=== PATIENT | female | born 1950 | race Caucasian/White ===

== ENCOUNTER 2021-12-19 13:22 | Inpatient (IN) | payer OTHER ==
[~2021-12-19] VITALS: Ht 152.4 cm; Wt 99.2 kg
[2021-12-19 14:03] LABS: Basophils # (auto) 0 10 ^3/uL (0-0.2); Basophils % (auto) 0.5 % (0.0-2.0); Eosinophils # (auto) 0.1 10 ^3/uL (0-0.8); Eosinophils % (auto) 0.9 % (0.0-7.0); Hematocrit 41.9 % (36.0-46.0); Hemoglobin 13.5 g/dL (12.2-16.2); Lymphocytes # (auto) 1.5 10 ^3/uL (0.4-5.4); Lymphocytes % (auto) 16.5 % (10.0-50.0); Mean Corpuscular Hemoglobin 27.2 pg (28.0-32.0); Mean Corpuscular Hgb Conc. 32.2 g/dL (32.0-36.0); Mean Corpuscular Volume 84.5 fL (80.0-100.0); Monocytes # (auto) 0.8 10 ^3/uL (0-1.3); Neutrophils # (auto) 6.5 10 ^3/uL (1.6-8.6); Neutrophils % (auto) 73.1 % (37.0-80.0); Red Blood Cells 4.96 10^6/uL (4.0-5.20); Red Cell Distribution Width 14.3 % (11.8-14.3); White Blood Cell 8.9 10^3/uL (4.4-10.8)
[2021-12-19] MEDS ORDERED: SODIUM CHLORIDE 0.9% 1,000 ML IV ONE ×2 (14:15→14:30)
[2021-12-19 14:22] LABS: Albumin 3.9 g/dL (3.4-5.0); Calcium 9.3 mg/dL (8.5-10.1)
[2021-12-19 14:25] LABS: BUN/Creatinine Ratio 18.7; Bilirubin, Total 1.6 mg/dL (0.2-1.0); Total Protein 7.1 g/dL (6.4-8.2)
[2021-12-19] MEDS ORDERED: AMIODARONE HCL 150 MG in D5W 5% 100 ML IV ONE (14:30)
[2021-12-19] MEDS ORDERED: AMIODARONE HCL (50 MG/ ML) 3 ML VIAL IV ONE (14:35)
[2021-12-19 14:45] LABS: Potassium 2.3 mmol/L (3.5-5.1)
[2021-12-19] MEDS ORDERED: AMIODARONE 450mg/250ml AE 250 ML IV SCH ×2 (14:45→16:00)
[2021-12-19] MEDS ORDERED: NITROGLYCERIN 0.4 MG SL TAB SL PRN (16:00)
[2021-12-19] MEDS ORDERED: LORazepam 0.5 MG TAB PO PRN (16:00)
[2021-12-19] MEDS ORDERED: POTASSIUM CHLORIDE 20 MEQ, LIDOCAINE 1% (LOCAL ANESTH.) 2 ML in SODIUM CHL 0.9% 100 ML IV ONE (16:00)
[2021-12-19] MEDS ORDERED: ONDANSETRON HCL 4 MG/2 ML VIAL IV PRN (16:00)
[2021-12-19] MEDS ORDERED: MORPHINE SULFATE INJ 2 MG/ml SYRG IV PRN (16:00)
[2021-12-19] MEDS ORDERED: ENOXAPARIN SOD 100 MG/1 ML SYRINGE SC ONE (16:00)
[2021-12-19] MEDS ORDERED: POTASSIUM CHL 20 Meq TABLET PO ONE (16:00)
[2021-12-19] MEDS ORDERED: ACETAMINOPHEN 500 MG TAB PO PRN (16:00)
[2021-12-19] MEDS ORDERED: DIGOXIN 0.25 MG TAB PO ONE (16:15)
[2021-12-19] MEDS: CARVEDILOL 3.125 MG TAB PO SCH (16:59)
[2021-12-19 17:08] LABS: Urine Bacteria NONE SEEN /hpf (None Seen); Urine Blood Negative /uL (Negative); Urine Hyaline Cast FEW /lpf (0 - 2); Urine Specific Gravity 1.012 (1.001-1.035); Urine WBC 1 /hpf (0 - 5)
[2021-12-20] MEDS: AMIODARONE 450mg/250ml AE 250 ML IV SCH ×2 (02:01→13:54)
[2021-12-20 06:45] LABS: BUN/Creatinine Ratio 23.7; Calcium 7.8 mg/dL (8.5-10.1)
[2021-12-20 06:52] LABS: Potassium 2.7 mmol/L (3.5-5.1)
[2021-12-20] MEDS ORDERED: POTASSIUM CHL 20 Meq TABLET PO ONE ×2 (07:30→13:00)
[2021-12-20] MEDS: CARVEDILOL 3.125 MG TAB PO SCH (10:41)
[2021-12-20] MEDS: ENOXAPARIN SOD 100 MG/1 ML SYRINGE SC SCH (10:41)
[2021-12-20] MEDS ORDERED: MECL12.514 PO (12:23)
[2021-12-20] MEDS ORDERED: ALP15OS EACHEYE (12:23)
[2021-12-20] MEDS ORDERED: MONT-8 PO (12:23)
[2021-12-20] MEDS ORDERED: SERT-377 PO (12:23)
[2021-12-20] MEDS ORDERED: SIMV-13 PO (12:23)
[2021-12-20] MEDS ORDERED: ALBU108A14 IN (12:23)
[2021-12-20] MEDS ORDERED: FLUT500M2 INH (12:23)
[2021-12-20] MEDS ORDERED: HYDR12.56 PO (12:23)
[2021-12-20] MEDS ORDERED: FURO40TA4 PO (12:23)
[2021-12-20] MEDS ORDERED: LATA0.0019 EACHEYE (12:23)
[2021-12-20] MEDS ORDERED: POTA10TA51 PO (12:23)
[2021-12-20] MEDS ORDERED: PANT40TA2 PO (12:23)
[2021-12-20 12:42] VITALS: BP 189/96
[2021-12-20] MEDS ORDERED: POTASSIUM CHLORIDE 40 MEQ, LIDOCAINE 1% (LOCAL ANESTH.) 4 ML in SODIUM CHL 0.9% 250 ML IV ONE (13:00)
[2021-12-20] MEDS ORDERED: DOCUSATE SOD 100 MG CAP PO ONE (13:00)
[2021-12-20] MEDS ORDERED: LACTULOSE 20Gm/30ML SOLN PO ONE (13:00)
[2021-12-20] MEDS ORDERED: PANTOPRAZOLE 40 MG TAB PO ONE (13:00)
[2021-12-20] MEDS ORDERED: CARVEDILOL 3.125 MG TAB PO ONE (13:00)
[2021-12-20] MEDS ORDERED: FUROSEMIDE 40 MG TAB PO ONE (15:45)
[2021-12-20 17:00] VITALS: BP 101/72
[2021-12-20] MEDS: LATANOPROST 0.005 % OPTH(EYE) SOL 2.5ML EACHEYE SCH (21:48)
[2021-12-20] MEDS: BRIMONIDINE 0.2% OPTH Soln 5ml EACHEYE SCH (21:48)
[2021-12-20 22:00] VITALS: BP 113/71
[2021-12-20] MEDS ORDERED: CARVEDILOL 3.125 MG TAB PO SCH (22:00)
[2021-12-20] MEDS: ATORVASTATIN 20 MG TAB PO SCH (22:16)
[2021-12-20] MEDS: MONTELUKAST SODIUM 10 MG TAB PO SCH (22:17)
[2021-12-21] MEDS: AMIODARONE 450mg/250ml AE 250 ML IV SCH ×2 (03:48→18:46)
[2021-12-21 05:00] VITALS: BP 114/63
[2021-12-21 06:50] LABS: Calcium 8.3 mg/dL (8.5-10.1); Magnesium 1.7 mg/dL (1.6-2.6)
[2021-12-21 06:54] LABS: Potassium 2.7 mmol/L (3.5-5.1)
[2021-12-21 09:00] VITALS: BP 119/70
[2021-12-21] MEDS: BRIMONIDINE 0.2% OPTH Soln 5ml EACHEYE SCH ×2 (10:00→22:22)
[2021-12-21] MEDS: CARVEDILOL 12.5 MG TAB PO SCH ×2 (10:08→22:24)
[2021-12-21] MEDS: FUROSEMIDE 40 MG TAB PO SCH (10:09)
[2021-12-21] MEDS: ENOXAPARIN SOD 100 MG/1 ML SYRINGE SC SCH (10:09)
[2021-12-21] MEDS: PANTOPRAZOLE 40 MG TAB PO SCH (10:09)
[2021-12-21] MEDS: SERTRALINE HCL 50 MG TAB PO SCH (10:09)
[2021-12-21 13:00] VITALS: BP 131/75
[2021-12-21] MEDS ORDERED: POTASSIUM CHL 20 Meq TABLET PO ONE (14:30)
[2021-12-21] MEDS ORDERED: POTASSIUM CHLORIDE 40 MEQ, LIDOCAINE 1% (LOCAL ANESTH.) 4 ML in SODIUM CHL 0.9% 250 ML IV ONE (14:30)
[2021-12-21] MEDS: MAGNESIUM SULFATE 1GM/100ML 100 ML IV SCH ×4 (15:00→23:33)
[2021-12-21 17:05] VITALS: BP 98/67
[2021-12-21 22:00] VITALS: BP 122/99
[2021-12-21] MEDS: ATORVASTATIN 20 MG TAB PO SCH (22:00)
[2021-12-21] MEDS: LATANOPROST 0.005 % OPTH(EYE) SOL 2.5ML EACHEYE SCH (22:22)
[2021-12-21] MEDS: AMIODARONE HCL 200 MG TAB PO SCH (22:23)
[2021-12-21] MEDS: MONTELUKAST SODIUM 10 MG TAB PO SCH (22:25)
[2021-12-22 05:05] VITALS: BP 142/65
[2021-12-22 05:54] LABS: Calcium 8.1 mg/dL (8.5-10.1); Magnesium 2.1 mg/dL (1.6-2.6)
[2021-12-22 05:57] LABS: BUN/Creatinine Ratio 20.8
[2021-12-22 06:16] LABS: Potassium 2.8 mmol/L (3.5-5.1)
[2021-12-22 09:00] VITALS: BP 115/67
[2021-12-22] MEDS: HYDROcodone-ACET 5/325MG TAB PO PRN ×2 (09:03→14:33)
[2021-12-22] MEDS ORDERED: POTASSIUM CHL 20 Meq TABLET PO SCH (10:00)
[2021-12-22] MEDS: BRIMONIDINE 0.2% OPTH Soln 5ml EACHEYE SCH ×2 (10:05→22:16)
[2021-12-22] MEDS: AMIODARONE HCL 200 MG TAB PO SCH ×2 (10:06→22:16)
[2021-12-22] MEDS: PANTOPRAZOLE 40 MG TAB PO SCH (10:06)
[2021-12-22] MEDS: SERTRALINE HCL 50 MG TAB PO SCH (10:06)
[2021-12-22] MEDS: CARVEDILOL 12.5 MG TAB PO SCH ×2 (10:06→16:53)
[2021-12-22] MEDS: ENOXAPARIN SOD 100 MG/1 ML SYRINGE SC SCH (10:06)
[2021-12-22] MEDS: FUROSEMIDE 40 MG TAB PO SCH (10:07)
[2021-12-22 13:00] VITALS: BP 113/70
[2021-12-22] MEDS ORDERED: POTASSIUM EFFERVESENT TAB 25 MEQ GT ONE (13:30)
[2021-12-22] MEDS ORDERED: SPIRONOLACTONE 25 MG TAB PO ONE (13:30)
[2021-12-22] MEDS ORDERED: CARVEDILOL 12.5 MG TAB PO SCH (16:15)
[2021-12-22 16:34] VITALS: BP 102/56
[2021-12-22 22:00] VITALS: BP 100/46
[2021-12-22] MEDS: APIXABAN 5 MG TAB PO SCH (22:16)
[2021-12-22] MEDS: LATANOPROST 0.005 % OPTH(EYE) SOL 2.5ML EACHEYE SCH (22:16)
[2021-12-22] MEDS: ATORVASTATIN 20 MG TAB PO SCH (22:17)
[2021-12-22] MEDS: MONTELUKAST SODIUM 10 MG TAB PO SCH (22:17)
[2021-12-23] MEDS: CARVEDILOL 12.5 MG TAB PO SCH ×2 (04:15→16:30)
[2021-12-23 04:23] LABS: Calcium 8.6 mg/dL (8.5-10.1)
[2021-12-23 04:25] LABS: BUN/Creatinine Ratio 21.8
[2021-12-23 05:00] VITALS: BP 102/56
[2021-12-23 09:00] VITALS: BP 117/64
[2021-12-23] MEDS ORDERED: SPIRONOLACTONE 25 MG TAB PO SCH (10:00)
[2021-12-23] MEDS: BRIMONIDINE 0.2% OPTH Soln 5ml EACHEYE SCH (10:00)
[2021-12-23] MEDS ORDERED: LISINOPRIL 5 MG TAB PO SCH (10:00)
[2021-12-23] MEDS ORDERED: POTASSIUM EFFERVESENT TAB 25 MEQ PO SCH (10:00)
[2021-12-23] MEDS: PANTOPRAZOLE 40 MG TAB PO SCH (10:54)
[2021-12-23] MEDS: APIXABAN 5 MG TAB PO SCH (10:55)
[2021-12-23] MEDS: SERTRALINE HCL 50 MG TAB PO SCH (10:56)
[2021-12-23] MEDS: AMIODARONE HCL 200 MG TAB PO SCH (10:57)
[2021-12-23] MEDS: FUROSEMIDE 40 MG TAB PO SCH (10:58)
[2021-12-23 13:00] VITALS: BP 130/68
[2021-12-23] MEDS: POTASSIUM CHL 20 Meq TABLET PO ONE ×2 (14:00→14:17)
[2021-12-23] MEDS ORDERED: POTASSIUM EFFERVESENT TAB 25 MEQ PO ONE ×2 (15:00)
[2021-12-23] MEDS ORDERED: AMIO400T7 PO (15:09)
[2021-12-23] MEDS ORDERED: CAR125T PO (15:09)
[2021-12-23] MEDS ORDERED: SPIR25TA PO (15:09)
[2021-12-23] MEDS ORDERED: LISI-275 PO (15:09)
[2021-12-23] MEDS ORDERED: APIX5TAB PO (15:09)
[2021-12-23 17:00] VITALS: BP 122/71
[2021-12-23 17:13] VITALS: BP 122/71
== END 2021-12-23 18:00 | disposition home or self-care (01) | DRG 291 ==
LOC: ER 13:22 → TELE 15:56 → TELE-WESTW 12-20 09:47
PROVIDERS: ADMIT Internal Medicine; ATTEND Internal Medicine
DX: I11.0 Hypertensive heart disease with heart failure (principal); I50.41 Acute combined systolic (congestive) and diastolic (congestive) heart failure; N17.0 Acute kidney failure with tubular necrosis; I48.20 Chronic atrial fibrillation, unspecified; D68.69 Other thrombophilia; Z68.41 Body mass index [BMI] 40.0-44.9, adult; I42.8 Other cardiomyopathies; E87.6 Hypokalemia; E66.01 Morbid (severe) obesity due to excess calories; Z20.822 Contact with and (suspected) exposure to COVID-19; E78.5 Hyperlipidemia, unspecified; F41.9 Anxiety disorder, unspecified; F32.A Depression, unspecified; J44.9 Chronic obstructive pulmonary disease, unspecified; K59.00 Constipation, unspecified; H40.9 Unspecified glaucoma; Z90.49 Acquired absence of other specified parts of digestive tract
CPT/HCPCS: 36415; 71045; 80048; 80053; 81001; 83735; 83880; 84443; 84484; 85025; 93005; 93306; 96365; 99291; G0378; J2001; J7060

== ENCOUNTER → 2021-12-27 | Outpatient (CLI) | payer OTHER ==
[~2021-12-27] MED LIST: ALBU108A14 IN; ALP15OS EACHEYE; AMIO400T7 PO; APIX5TAB PO; CAR125T PO; FLUT500M2 INH; FURO40TA4 PO; LATA0.0019 EACHEYE; LISI-275 PO; MECL12.514 PO; MONT-8 PO; PANT40TA2 PO; SERT-377 PO; SIMV-13 PO; SPIR25TA PO
[2021-12-27 14:35] LABS: Albumin 3.1 g/dL (3.4-5.0); Calcium 9.2 mg/dL (8.5-10.1); Potassium 3.3 mmol/L (3.5-5.1)
[2021-12-27 14:39] LABS: BUN/Creatinine Ratio 20.2; Bilirubin, Total 0.9 mg/dL (0.2-1.0); Total Protein 6.2 g/dL (6.4-8.2)
== END | disposition home or self-care (01) ==
LOC: LAB 13:52
PROVIDERS: ATTEND Internal Medicine
DX: I10 Essential (primary) hypertension (principal); I12.9 Hypertensive chronic kidney disease with stage 1 through stage 4 chronic kidney disease, or unspecified chronic kidney disease; N18.30 Chronic kidney disease, stage 3 unspecified
CPT/HCPCS: 36415; 80053

== ENCOUNTER 2023-10-23 13:22 | Emergency (ER) | payer OTHER ==
[~2023-10-23] VITALS: Ht 152.4 cm; Wt 72.3 kg
[~2023-10-23 13:22] MED LIST changes: -CAR125T PO; +CARV-216 PO; -LATA0.0019 EACHEYE; +LATA0.008 EACHEYE; -MECL12.514 PO; +MECL12.586 PO; -SIMV-13 PO; +SIMV40TA18 PO
[2023-10-23 14:46] LABS: Urine Bacteria None Seen /hpf (None Seen)
[2023-10-23 14:52] LABS: Urine Blood Negative /uL (Negative); Urine Clarity Clear (Clear); Urine Color Colorless (Yellow); Urine Protein, UAD Negative (Negative); Urine Specific Gravity 1.008 (1.001-1.035); Urine Urobilinogen Normal (Negative); Urine WBC 34 /hpf (0 - 5)
[2023-10-23 15:00] VITALS: PULSE 52; RESP 17; O2SAT 97
[2023-10-23 15:05] VITALS: TEMP 98.7
[2023-10-23 15:09] LABS: Basophils # (auto) 0 10 ^3/uL (0-0.2)
[2023-10-23 15:12] LABS: Chloride 110 mmol/L (98-107); Potassium 4.1 mmol/L (3.5-5.1); Sodium 139 mmol/L (136-145)
[2023-10-23 15:13] LABS: Anion Gap 5 (5-15); Carbon Dioxide 24 mmol/L (20-30)
[2023-10-23 15:14] LABS: Basophils % (auto) 0.6 % (0.0-2.0); Calcium 9.2 mg/dL (8.5-10.1); Eosinophils # (auto) 0.6 10 ^3/uL (0-0.8); Eosinophils % (auto) 8.1 % (0.0-7.0); Hematocrit 39.5 % (36.0-46.0); Hemoglobin 11.6 g/dL (12.2-16.2); Lymphocytes # (auto) 1.4 10 ^3/uL (0.4-5.4); Lymphocytes % (auto) 18.1 % (10.0-50.0); Mean Corpuscular Hemoglobin 27.3 pg (28.0-32.0); Mean Corpuscular Hgb Conc. 29.4 g/dL (32.0-36.0); Mean Corpuscular Volume 92.9 fL (80.0-100.0); Monocytes # (auto) 0.5 10 ^3/uL (0-1.3); Neutrophils # (auto) 5.4 10 ^3/uL (1.6-8.6); Neutrophils % (auto) 67.2 % (37.0-80.0); Red Blood Cells 4.26 10^6/uL (4.0-5.20); Red Cell Distribution Width 18.3 % (11.8-14.3)
[2023-10-23 15:19] LABS: BUN/Creatinine Ratio 21.5 (10.0-20.0); Blood Urea Nitrogen 44 mg/dL (9-23); Glucose 84 mg/dL (74-106)
[2023-10-23] MEDS: cefTRIAXone 1GM/50ML D5W 50 ML IV ONE (16:30)
[2023-10-23] MEDS ORDERED: NITR-87 PO (17:51)
[2023-10-23 18:07] VITALS: BP 105/45; PULSE 52; RESP 16; O2SAT 95
== END 2023-10-23 18:23 | disposition home or self-care (01) ==
LOC: ER 13:22
DX: N39.0 Urinary tract infection, site not specified (principal); F41.9 Anxiety disorder, unspecified; J45.909 Unspecified asthma, uncomplicated; F32.9 Major depressive disorder, single episode, unspecified; E78.5 Hyperlipidemia, unspecified; I10 Essential (primary) hypertension; I48.91 Unspecified atrial fibrillation; Z79.899 Other long term (current) drug therapy
CPT/HCPCS: 36415; 70450; 80048; 81001; 82962; 84484; 85025; 87086; 96365; 99285; J0696

== ENCOUNTER 2023-10-29 10:41 | Inpatient (IN) | payer OTHER ==
[~2023-10-29] VITALS: Ht 157.5 cm; Wt 165.5 kg
[~2023-10-29 10:41] MED LIST changes: +ALPR0.254 PO; +NITR-87 PO; +TRAM50TA2 PO
[2023-10-29 11:40] LABS: Urine Bacteria FEW /hpf (None Seen); Urine Blood 1+ /uL (Negative); Urine Clarity Turbid (Clear); Urine Color Yellow (Yellow); Urine Hyaline Cast FEW /lpf (0 - 2); Urine Mucus FEW (None Seen); Urine Protein, UAD 1+ (Negative); Urine Specific Gravity 1.018 (1.001-1.035); Urine Urobilinogen Normal (Negative); Urine WBC 377 /hpf (0 - 5)
[2023-10-29 11:59] LABS: Alanine Aminotransferase 17 U/L (7-40); Albumin 3.9 g/dL (3.2-4.8); Alkaline Phosphatase 85 U/L (46-116); Anion Gap 7 (5-15); Aspartate Aminotransferase 20 U/L (13-40); BUN/Creatinine Ratio 17.8 (10.0-20.0); Bilirubin, Total 0.5 mg/dL (0.2-1.0); Blood Urea Nitrogen 31 mg/dL (9-23); Calcium 9.2 mg/dL (8.7-10.4); Carbon Dioxide 22 mmol/L (20-30); Chloride 110 mmol/L (98-107); Glucose 96 mg/dL (74-106); Lipase 38 U/L (12-53); Potassium 4.2 mmol/L (3.5-5.1); Sodium 139 mmol/L (136-145)
[2023-10-29 12:22] LABS: Basophils # (auto) 0 10 ^3/uL (0-0.2); Basophils % (auto) 0.4 % (0.0-2.0); Eosinophils # (auto) 0.4 10 ^3/uL (0-0.8); Eosinophils % (auto) 3.3 % (0.0-7.0); Hematocrit 33.3 % (36.0-46.0); Hemoglobin 10.6 g/dL (12.2-16.2); Lymphocytes # (auto) 0.9 10 ^3/uL (0.4-5.4); Lymphocytes % (auto) 6.9 % (10.0-50.0); Mean Corpuscular Hgb Conc. 31.8 g/dL (32.0-36.0); Mean Corpuscular Volume 84.9 fL (80.0-100.0); Monocytes # (auto) 0.6 10 ^3/uL (0-1.3); Monocytes % (auto) 4.7 % (0.0-12.0); Neutrophils # (auto) 10.5 10 ^3/uL (1.6-8.6); Neutrophils % (auto) 84.7 % (37.0-80.0); Red Blood Cells 3.92 10^6/uL (4.0-5.20); Red Cell Distribution Width 16.3 % (11.8-14.3); White Blood Cell 12.4 10^3/uL (4.4-10.8)
[2023-10-29] MEDS: cefTRIAXone 1GM/50ML D5W 50 ML IV ONE (15:00)
[2023-10-29] MEDS: HYDROcodone-ACET 5/325MG TAB PO ONE (15:03)
[2023-10-29] MEDS: SODIUM CHLORIDE 0.9% 1,000 ML IV ONE (18:30)
[2023-10-29] MEDS ORDERED: CLOP75TA70 PO (19:13)
[2023-10-29] MEDS ORDERED: ACETAMINOPHEN 325 MG TAB PO PRN (19:15)
[2023-10-29] MEDS ORDERED: DOCUSATE SOD 100 MG CAP PO PRN (19:15)
[2023-10-29] MEDS ORDERED: NITROGLYCERIN 0.4 MG SL TAB SL PRN (19:15)
[2023-10-29] MEDS ORDERED: MORPHINE SULFATE INJ 2 MG/ml SYRG IV PRN (19:15)
[2023-10-29] MEDS ORDERED: ONDANSETRON HCL 4 MG/2 ML VIAL IV PRN (19:15)
[2023-10-29] MEDS: SODIUM CHLORIDE 0.9% 1,000 ML IV SCH (20:30)
[2023-10-30] VITALS (10 sets, daily range): BP systolic 99–132; BP diastolic 31–47; PULSE 46–63; RESP 14–18; TEMP 97.7–98.2; O2SAT 95–99
[2023-10-30] MEDS: AMIODARONE HCL 200 MG TAB PO SCH (00:50)
[2023-10-30] MEDS: HYDROcodone-ACET 5/325MG TAB PO PRN (00:51)
[2023-10-30 06:39] LABS: Alanine Aminotransferase 18 U/L (7-40); Albumin 4.2 g/dL (3.2-4.8); Alkaline Phosphatase 93 U/L (46-116); Anion Gap 9 (5-15); Aspartate Aminotransferase 24 U/L (13-40); BUN/Creatinine Ratio 13.1 (10.0-20.0); Blood Urea Nitrogen 19 mg/dL (9-23); Calcium 9.4 mg/dL (8.5-10.1); Carbon Dioxide 19 mmol/L (20-30); Chloride 110 mmol/L (98-107); Glucose 78 mg/dL (74-106); Potassium 3.4 mmol/L (3.5-5.1); Sodium 138 mmol/L (136-145)
[2023-10-30 06:40] LABS: Bilirubin, Total 0.5 mg/dL (0.2-1.0); Total Protein 6.7 g/dL (5.7-8.2)
[2023-10-30 06:54] LABS: Basophils # (auto) 0.1 10 ^3/uL (0-0.2); Basophils % (auto) 0.7 % (0.0-2.0); Eosinophils # (auto) 0.8 10 ^3/uL (0-0.8); Eosinophils % (auto) 5.6 % (0.0-7.0); Hematocrit 36.5 % (36.0-46.0); Hemoglobin 11.5 g/dL (12.2-16.2); Lymphocytes # (auto) 0.6 10 ^3/uL (0.4-5.4); Lymphocytes % (auto) 4.8 % (10.0-50.0); Mean Corpuscular Hemoglobin 27.4 pg (28.0-32.0); Mean Corpuscular Hgb Conc. 31.5 g/dL (32.0-36.0); Mean Corpuscular Volume 87.2 fL (80.0-100.0); Monocytes # (auto) 0.5 10 ^3/uL (0-1.3); Monocytes % (auto) 3.4 % (0.0-12.0); Neutrophils # (auto) 11.5 10 ^3/uL (1.6-8.6); Neutrophils % (auto) 85.5 % (37.0-80.0); Nucleated Red Blood Cells % 0.1 %; Red Blood Cells 4.19 10^6/uL (4.0-5.20); White Blood Cell 13.4 10^3/uL (4.4-10.8)
[2023-10-30] MEDS: SODIUM CHLORIDE 0.9% 1,000 ML IV SCH (08:00)
[2023-10-30 08:47] LABS: Creatinine, Urine 85.74 mg/dL (30.0-125.0)
[2023-10-30] MEDS ORDERED: cefTRIAXone 1GM/50ML D5W 50 ML IV SCH (09:00)
[2023-10-30] MEDS: CEFEPIME 1GM/ 50ML 50 ML IV SCH (09:12)
[2023-10-30] MEDS: APIXABAN 5 MG TAB PO SCH (09:12)
[2023-10-30] MEDS: POTASSIUM CHL 20 Meq TABLET PO ONE (09:13)
[2023-10-30] MEDS: CLOPIDOGREL BISULFATE 75 MG TAB PO SCH (09:13)
[2023-10-30] MEDS: traMADol HCL 50 MG TAB PO PRN (12:41)
[2023-10-30] MEDS: ATORVASTATIN 20 MG TAB PO SCH (21:23)
[2023-10-30] MEDS: LATANOPROST 0.005 % OPTH(EYE) SOL 2.5ML EACHEYE SCH (21:23)
[2023-10-30] MEDS ORDERED: ENOXAPARIN SOD 30 MG/0.3 ML SYRINGE SC SCH (22:00)
[2023-10-31 01:00] VITALS: BP 110/54; PULSE 43; RESP 18; TEMP 97.9; O2SAT 95
[2023-10-31 05:00] VITALS: BP 113/50; PULSE 41; RESP 18; TEMP 98.1; O2SAT 97
[2023-10-31 06:10] LABS: Basophils # (auto) 0 10 ^3/uL (0-0.2); Basophils % (auto) 0.4 % (0.0-2.0); Eosinophils # (auto) 0.5 10 ^3/uL (0-0.8); Eosinophils % (auto) 7.2 % (0.0-7.0); Hematocrit 34.7 % (36.0-46.0); Mean Corpuscular Hemoglobin 27.4 pg (28.0-32.0); Mean Corpuscular Hgb Conc. 31.6 g/dL (32.0-36.0); Mean Corpuscular Volume 86.6 fL (80.0-100.0); Monocytes # (auto) 0.7 10 ^3/uL (0-1.3); Monocytes % (auto) 9.3 % (0.0-12.0); Neutrophils # (auto) 5.1 10 ^3/uL (1.6-8.6); Neutrophils % (auto) 69.1 % (37.0-80.0); Nucleated Red Blood Cells % 0.2 %; Red Blood Cells 4.01 10^6/uL (4.0-5.20); Red Cell Distribution Width 16.9 % (11.8-14.3); White Blood Cell 7.4 10^3/uL (4.4-10.8)
[2023-10-31 06:26] LABS: Calcium 9.6 mg/dL (8.7-10.4); Chloride 112 mmol/L (98-107); Potassium 3.6 mmol/L (3.5-5.1); Sodium 138 mmol/L (136-145)
[2023-10-31 06:27] LABS: Anion Gap 7 (5-15); Carbon Dioxide 19 mmol/L (20-30)
[2023-10-31 06:32] LABS: BUN/Creatinine Ratio 15.3 (10.0-20.0); Blood Urea Nitrogen 20 mg/dL (9-23); Glucose 75 mg/dL (74-106)
[2023-10-31 06:33] LABS: Magnesium 1.8 mg/dL (1.6-2.6)
[2023-10-31 08:00] VITALS: PULSE 53; RESP 20
[2023-10-31 09:00] VITALS: BP 138/67; PULSE 51; RESP 18; TEMP 97.8; O2SAT 96
[2023-10-31] MEDS ORDERED: AMIO200T33 PO (09:21)
[2023-10-31] MEDS ORDERED: TRAZ-227 PO (09:21)
[2023-10-31] MEDS ORDERED: POTA-180 PO (09:21)
[2023-10-31] MEDS ORDERED: ESTR0.1C5 VA (09:21)
[2023-10-31] MEDS ORDERED: ASPI81CH59 PO (09:21)
[2023-10-31] MEDS ORDERED: CARV6.2551 PO (09:25)
[2023-10-31] MEDS ORDERED: BUDE1AER4 INH (09:30)
[2023-10-31 13:00] VITALS: BP 126/54; PULSE 56; RESP 18; TEMP 98; O2SAT 99
[2023-10-31] MEDS ORDERED: LEVO75TA6 PO (15:18)
[2023-10-31] MEDS ORDERED: CEFP200T15 PO (15:18)
== END 2023-10-31 17:14 | disposition home or self-care (01) | DRG 689 ==
LOC: ER 10:41 → TELE 19:13 → TELE-WESTW 10-30 00:01
PROVIDERS: ADMIT Internal Medicine; ATTEND Internal Medicine
DX: N39.0 Urinary tract infection, site not specified (principal); N17.0 Acute kidney failure with tubular necrosis; Z68.44 Body mass index [BMI] 60.0-69.9, adult; I48.91 Unspecified atrial fibrillation; E66.01 Morbid (severe) obesity due to excess calories; I25.10 Atherosclerotic heart disease of native coronary artery without angina pectoris; I50.9 Heart failure, unspecified; N18.9 Chronic kidney disease, unspecified; E03.9 Hypothyroidism, unspecified; Z87.442 Personal history of urinary calculi; Z98.61 Coronary angioplasty status
CPT/HCPCS: 36415; 74176; 80048; 80053; 81001; 82570; 83605; 83690; 83735; 84300; 84439; 84443; 84484; 85025; 87040; 87086; 87088; 87186; 96361; 96365; 97163; G0378

== ENCOUNTER 2023-12-11 11:51 | Inpatient (IN) | payer OTHER ==
[~2023-12-11] VITALS: Ht 152.4 cm; Wt 68.5 kg
[~2023-12-11 11:51] MED LIST changes: -ALBU108A14 IN; -ALP15OS EACHEYE; +AMIO200T33 PO; -AMIO400T7 PO; -APIX5TAB PO; +ASPI81CH59 PO; +BUDE1AER4 INH; -CARV-216 PO; +CARV6.2551 PO; +CEFP200T15 PO; +CLOP75TA70 PO; +ESTR0.1C5 VA; -FLUT500M2 INH; -LATA0.008 EACHEYE; +LEVO75TA6 PO; -LISI-275 PO; -MECL12.586 PO; +POTA-180 PO; +TRAZ-227 PO
[2023-12-11 12:17] LABS: Urine Bacteria None Seen /hpf (None Seen)
[2023-12-11 12:23] LABS: Urine Blood Negative /uL (Negative); Urine Clarity Clear (Clear); Urine Color Light-Yellow (Yellow); Urine Protein, UAD TRACE (Negative); Urine Specific Gravity 1.017 (1.001-1.035); Urine Urobilinogen Normal (Negative); Urine WBC 31 /hpf (0 - 5); Urine pH 5.5 (5.0-9.0)
[2023-12-11] MEDS: MORPHINE SULFATE 4 MG/ML SYR/VIAL IV ONE (12:30)
[2023-12-11] MEDS: cefTRIAXone 1GM/50ML D5W 50 ML IV ONE (13:46)
[2023-12-11] MEDS: ONDANSETRON HCL 4 MG/2 ML VIAL IV ONE (13:46)
[2023-12-11 13:57] LABS: Basophils # (auto) 0 10 ^3/uL (0-0.2); Basophils % (auto) 0.4 % (0.0-2.0); Eosinophils # (auto) 0.3 10 ^3/uL (0-0.8); Eosinophils % (auto) 4.7 % (0.0-7.0); Hematocrit 35.5 % (36.0-46.0); Hemoglobin 11.5 g/dL (12.2-16.2); Lymphocytes # (auto) 1.1 10 ^3/uL (0.4-5.4); Lymphocytes % (auto) 17.5 % (10.0-50.0); Mean Corpuscular Hemoglobin 27.5 pg (28.0-32.0); Mean Corpuscular Hgb Conc. 32.4 g/dL (32.0-36.0); Mean Corpuscular Volume 85.1 fL (80.0-100.0); Monocytes # (auto) 0.4 10 ^3/uL (0-1.3); Monocytes % (auto) 6.9 % (0.0-12.0); Neutrophils # (auto) 4.5 10 ^3/uL (1.6-8.6); Neutrophils % (auto) 70.5 % (37.0-80.0); Nucleated Red Blood Cells % 0.2 %; Red Blood Cells 4.17 10^6/uL (4.0-5.20); Red Cell Distribution Width 19.1 % (11.8-14.3); White Blood Cell 6.3 10^3/uL (4.4-10.8)
[2023-12-11] MEDS: SODIUM CHLORIDE 0.9% 500 ML IVB ONE (14:07)
[2023-12-11 14:14] LABS: Alanine Aminotransferase 23 U/L (7-40); Albumin 4.5 g/dL (3.2-4.8); Alkaline Phosphatase 92 U/L (46-116); Anion Gap 9 (5-15); Aspartate Aminotransferase 29 U/L (13-40); Bilirubin, Total 0.3 mg/dL (0.2-1.0); Blood Urea Nitrogen 38 mg/dL (9-23); Calcium 9.5 mg/dL (8.7-10.4); Carbon Dioxide 22 mmol/L (20-30); Chloride 110 mmol/L (98-107); Glucose 91 mg/dL (74-106); Potassium 3.8 mmol/L (3.5-5.1); Sodium 141 mmol/L (136-145); Total Protein 6.7 g/dL (5.7-8.2)
[2023-12-11] MEDS ORDERED: ACETAMINOPHEN 325 MG TAB PO PRN (15:00)
[2023-12-11] MEDS ORDERED: HYDROmorphone HCL 2 MG/ML VL/or syr IV PRN (15:00)
[2023-12-11] MEDS ORDERED: ONDANSETRON HCL 4 MG/2 ML VIAL IV PRN (15:00)
[2023-12-11] MEDS: HYDROcodone-ACET 5/325MG TAB PO ONE (15:22)
[2023-12-11] MEDS: TAMSULOSIN HYDROCHLORIDE 0.4 MG CAP PO SCH (15:22)
[2023-12-11] MEDS: LACTATED RINGER'S 1,000 ML IV ONE (15:23)
[2023-12-11] MEDS: SENNA 8.6 MG TAB PO ONE (15:25)
[2023-12-11 17:15] VITALS: PULSE 55; RESP 16; O2SAT 97
[2023-12-11] MEDS ORDERED: PATIENTS OWN MEDICATION (Simvastatin 1 TAB) PO SCH (18:00)
[2023-12-11 20:10] VITALS: PULSE 50; RESP 18; O2SAT 95
[2023-12-11 21:00] VITALS: BP 103/52; PULSE 50; RESP 16; TEMP 97.5; O2SAT 97
[2023-12-11] MEDS ORDERED: PATIENTS OWN MEDICATION (Carvedilol 1 TAB) PO SCH (22:00)
[2023-12-11] MEDS: AMIODARONE HCL 200 MG TAB PO SCH (22:00)
[2023-12-11] MEDS: CARVEDILOL 3.125 MG TAB PO SCH (22:00)
[2023-12-11] MEDS: DOCUSATE SOD 100 MG CAP PO PRN (23:14)
[2023-12-11] MEDS: ATORVASTATIN 20 MG TAB PO SCH (23:14)
[2023-12-11] MEDS: traZODone HCL 50 MG TAB PO SCH (23:15)
[2023-12-11] MEDS: APIXABAN 5 MG TAB PO SCH (23:16)
[2023-12-11] MEDS: SODIUM CHLOR 0.9% PF (SALINE LOCK) 10ML VIAL/SYR IV SCH (23:18)
[2023-12-12 01:00] VITALS: BP 100/49; PULSE 50; RESP 16; TEMP 97.5; O2SAT 99
[2023-12-12] MEDS: HYDROcodone-ACET 5/325MG TAB PO PRN (04:31)
[2023-12-12 05:00] VITALS: BP 123/63; PULSE 56; RESP 16; TEMP 97.5; O2SAT 97
[2023-12-12] MEDS: LEVOTHYROXINE SODIUM 25 MCG TAB PO SCH (06:51)
[2023-12-12] MEDS: LEVOTHYROXINE SODIUM 50 MCG TAB PO SCH (06:51)
[2023-12-12] MEDS: SERTRALINE HCL 50 MG TAB PO SCH (06:52)
[2023-12-12] MEDS ORDERED: SERTRALINE HCL 150 MG PO SCH (07:00)
[2023-12-12 08:10] VITALS: PULSE 49; RESP 21; O2SAT 96
[2023-12-12 08:27] VITALS: BP 112/48; PULSE 49; RESP 21; TEMP 97.5; O2SAT 96
[2023-12-12] MEDS ORDERED: ENOXAPARIN SOD 40 MG/0.4 ML SYRINGE SC ONE (08:45)
[2023-12-12] MEDS: cefTRIAXone 1GM/50ML D5W 50 ML IV SCH (08:54)
[2023-12-12 09:26] LABS: Amphetamine Screen, Urine Neg (NEGATIVE); Barbiturate Scree,Urine Neg (NEGATIVE); Benzodiazephine Screen, Urine Pos (NEGATIVE); Cocaine Screen, Urine Neg (NEGATIVE); Opiate Scree,Urine Neg (NEGATIVE)
[2023-12-12 09:27] LABS: Cannabinoid Screen, Urine Neg (NEGATIVE); Phencyclidine Screen, Urine Neg (NEGATIVE)
[2023-12-12] MEDS: ENOXAPARIN SOD 30 MG/0.3 ML SYRINGE SC SCH (09:41)
[2023-12-12] MEDS: PANTOPRAZOLE 40 MG TAB PO SCH (09:42)
[2023-12-12] MEDS: CLOPIDOGREL BISULFATE 75 MG TAB PO SCH (09:42)
[2023-12-12] MEDS: ASPirin 81 mg TAB PO SCH (09:42)
[2023-12-12] MEDS: MONTELUKAST SODIUM 10 MG TAB PO SCH (09:43)
[2023-12-12] MEDS: FUROSEMIDE 40 MG TAB PO SCH (09:45)
[2023-12-12 10:00] LABS: Basophils # (auto) 0 10 ^3/uL (0-0.2); Basophils % (auto) 0.4 % (0.0-2.0); Eosinophils # (auto) 0.3 10 ^3/uL (0-0.8); Eosinophils % (auto) 5.1 % (0.0-7.0); Hemoglobin 10.3 g/dL (12.2-16.2); Lymphocytes # (auto) 0.9 10 ^3/uL (0.4-5.4); Lymphocytes % (auto) 16.9 % (10.0-50.0); Mean Corpuscular Hemoglobin 27.3 pg (28.0-32.0); Mean Corpuscular Hgb Conc. 32.2 g/dL (32.0-36.0); Mean Corpuscular Volume 84.8 fL (80.0-100.0); Monocytes # (auto) 0.3 10 ^3/uL (0-1.3); Neutrophils # (auto) 3.7 10 ^3/uL (1.6-8.6); Neutrophils % (auto) 71.6 % (37.0-80.0); Red Blood Cells 3.78 10^6/uL (4.0-5.20); Red Cell Distribution Width 18.9 % (11.8-14.3); White Blood Cell 5.2 10^3/uL (4.4-10.8)
[2023-12-12] MEDS ORDERED: PATIENTS OWN MEDICATION (Aspirin (Aspirin Low Dose) 1 TAB) PO SCH (10:00)
[2023-12-12] MEDS ORDERED: LEVOTHYROXINE SODIUM PO SCH (10:00)
[2023-12-12 10:05] LABS: Chloride 108 mmol/L (98-107); Sodium 142 mmol/L (136-145)
[2023-12-12 10:06] LABS: Anion Gap 7 (5-15); Calcium 9.4 mg/dL (8.7-10.4); Carbon Dioxide 27 mmol/L (20-30)
[2023-12-12 10:11] LABS: BUN/Creatinine Ratio 20.1 (10.0-20.0); Blood Urea Nitrogen 32 mg/dL (9-23); Glucose 141 mg/dL (74-106)
[2023-12-12] MEDS ORDERED: LACTULOSE 20Gm/30ML SOLN PO SCH (10:30)
[2023-12-12] MEDS ORDERED: ATORVASTATIN 20 MG TAB PO SCH (10:45)
[2023-12-12 12:20] VITALS: BP 91/40; PULSE 55; RESP 20; TEMP 97.6; O2SAT 98
[2023-12-12] MEDS ORDERED: SODIUM CHLORIDE 0.9% 1,000 ML IV ONE (12:45)
[2023-12-12] MEDS ORDERED: NITR100C6 PO (12:53)
[2023-12-12 16:34] VITALS: BP 91/40; PULSE 55; RESP 20; TEMP 97.6; O2SAT 98
[2023-12-13] MEDS ORDERED: ENOXAPARIN SOD 40 MG/0.4 ML SYRINGE SC SCH (10:00)
== END 2023-12-12 18:01 | disposition home or self-care (01) | DRG 690 ==
LOC: ER 11:51 → OVERFLOW 14:56 → CENTRAL 16:58
PROVIDERS: ADMIT Internal Medicine; ATTEND Internal Medicine
DX: N13.6 Pyonephrosis (principal); I13.0 Hypertensive heart and chronic kidney disease with heart failure and stage 1 through stage 4 chronic kidney disease, or unspecified chronic kidney disease; I50.32 Chronic diastolic (congestive) heart failure; K52.89 Other specified noninfective gastroenteritis and colitis; N17.9 Acute kidney failure, unspecified; N20.0 Calculus of kidney; K44.9 Diaphragmatic hernia without obstruction or gangrene; N18.9 Chronic kidney disease, unspecified; I25.5 Ischemic cardiomyopathy; K21.9 Gastro-esophageal reflux disease without esophagitis; I25.10 Atherosclerotic heart disease of native coronary artery without angina pectoris; J44.89 Other specified chronic obstructive pulmonary disease; G89.29 Other chronic pain; I48.91 Unspecified atrial fibrillation; K59.09 Other constipation; Z79.899 Other long term (current) drug therapy
CPT/HCPCS: 36415; 71045; 72148; 74176; 80048; 80053; 80307; 81001; 82306; 82607; 85025; 93306; 96361; 96365; 96375; 97163; G0378; J2405